=== PATIENT | male | born 1945 | race Caucasian/White ===

== ENCOUNTER 2018-10-04 07:31 | Day surgery (SDC) | payer MEDICARE, OTHER, SELFPAY ==
[2018-09-19 07:34] VITALS: BMI 30.4
[2018-10-04] VITALS (8 sets, daily range): BP systolic 99–131; BP diastolic 67–83; PULSE 62–68; RESP 10–21; TEMP 36.2–37.2; O2SAT 94–99; BMI 30.2
[2018-10-04] MEDS: ACETAMINOPHEN 325 MG TABLET 975 MG PO (08:01)
[2018-10-04] MEDS: CELECOXIB 200 MG CAPSULE PO (08:01)
[2018-10-04] MEDS: LACTATED RINGERS 1,000 ML 42 ML IV (08:15)
--- NOTE | 2018-10-04 08:29 | PM.OP.1 ---
Operative Date/Time/Diagnoses Date of procedure: 10/04/18 Time of procedure: 09:47 Pre-op diagnosis: Medial compartment osteoarthritis right knee Post-op diagnosis: same Procedure & Clinicians Procedure: Right knee medial compartment arthroplasty Same procedure as scheduled: Yes Indications: The patient presents today for medial compartment knee arthroplasty after failure of conservative treatment. The nature of the procedure including the risks and benefits, alternatives, postoperative course and expected outcome were discussed and all questions answered. Consent was obtained. Operative site confirmed and marked. Surgeon: Richard Naylor Assistant Women'S Basketball Coach: Subha Shah Anesthesia Type: General and Local Operative Notes Findings: Severe medial compartment osteoarthritis. Closure Type: primary Specimen(s): none sent Prosthetic devices, grafts, tissues, transplants, or devices: ZUK D femur, 3 tibia and 9 mm polyethylene tray. Applied: implant(s) Estimated Blood Loss (mL): 15 Blood products transfused: none Tourniquet time (min): 37 Procedure in detail: The patient was taken to the operative suite and placed under general anesthesia. The patient received prophylactic antibiotics 1 g of IV tranexamic acid prior to surgery. The lateral aspect of the leg was prepped and the knee injected with 20 mL of 1% lidocaine with epinephrine. The leg was prepped and draped in usual sterile fashion. The leg was exsanguinated with an Esmarch dressing and the tourniquet raised to 250 torr. A 10 cm medial parapatellar incision and arthrotomy was then made. The anterior aspect of the fat pad and medial meniscus was resected. A small amount of anterior tibial boss was resected with a oscillating saw. The knee was then extended and the alignment guide placed. The distal femoral and proximal tibial cutting guides were then pinned into place. The distal femoral cut was made in extension. The proximal tibial cut was made in flexion. All remaining meniscus was excised. Gaps were checked with blocks. Soft tissues were then injected with a combination of 40 mL of quarter percent Marcaine with epinephrine, 20 mL of Exparel. The femur was sized and the appropriate cutting guide placed. The peg holes were drilled and chamfer cuts made. Next the tibia was sized and drilled. Trial components were then placed. The knee had good temple of soft tissue tension without over correction. Range of motion was full. The trial components were removed. The knee was cleansed with Pulsavac irrigation and dried. The components were then cemented with high viscosity vacuum mixed bone cement. The knee was held in extension until the cement had adequately cured. The knee was then irrigated and inspected for any further debris. The extensor mechanism was closed at 90? of flexion with a few interrupted #1 Vicryl sutures and a running O V-LOC suture. The knee was then filled with 50 mL of solution containing 1 g of tranexamic acid and 10 mL of 0.5% Marcaine. The subcutaneous tissue was closed with 2-0 Vicryl. The skin was closed with a running 3 0 V-LOC suture and surgical adhesive. An Aquacel dressing was applied. The leg was then wrapped with an Hussein which will be kept on for the first 24 hours. The patient tolerated the procedure well and was returned to recovery room in good condition. Complications: none Condition: stable Disposition: same day surgery Plan for aftercare: Plan discharge to home. Physical therapy to start within 1 week. Clinic follow-up in 2 weeks.
--- NOTE | 2018-10-04 08:31 | PM.PREOP ---
Pre-operative Note Interval Note History & Physical reviewed/Exam performed by Physician: Yes Changes to H&P: No
[2018-10-04] MEDS: CEFAZOLIN 2 GM/100 ML FROZ.PIGGY IV (08:55)
--- NOTE | 2018-10-04 09:12 | SUR.OPER ---
Supine on padded OR bed. Pillow under head, arms secured on padded armboards <90 degree abduction. Safety belt across torso. Non-operative leg secured with tape over blanket over lower leg. Operative leg secured in [employer]/Mikey positioner. Foam padded brace at thigh of operative leg.
[2018-10-04] MEDS: LIDOCAINE 1% W/EPI INJ 20 ML INJ (09:20)
[2018-10-04] MEDS: BUPIVACAINE 0.5% W/ EPI (PF) 20 ML, BUPIVACAINE LIPOSOME 266 MG, SODIUM CHLORIDE 0.9% 2... INJ (09:21)
[2018-10-04] MEDS: BUPIVACAINE 0.5% W/ EPI (PF) 10 ML, TRANEXAMIC ACID 1,000 MG, SODIUM CHLORIDE 0.9% 20 ML INJ (09:26)
[2018-10-04] MEDS: HYDROCODONE/ACET 5/325 TABLET 1 TAB PO (10:20)
--- NOTE | 2018-10-04 10:37 | SUR.PHASEII ---
pt arrived to phase II via stretcher. Pt sitting up, alert and talking to RN. drsg to surgical extremity observed to be c/d/i. pt rates pain 5/10 at this time and reports this is tolerable at this time. pt denies any nausea and tolerating oral intake at this time. pt awaiting return of girlfriend from getting rx filled. bed in lowest position and call light given to pt. pt appears comfortable at this time.
--- NOTE | 2018-10-04 11:33 | SUR.PHASEII ---
pt ambulated to bathroom with sba without any difficultly observed, steady gait. My reported I feel better than I did before surgery. pt discharged to home in stable condition, vss.
== END 2018-10-04 11:39 | disposition home or self-care (01) ==
PROVIDERS: PCP Nurse Practitioner Family; Visit Provider Orthopaedic Surgery
PROC: (CPT 27446; principal; 2018-10-04 08:45)
DX: M17.11 Unilateral primary osteoarthritis, right knee (principal); G20 Parkinson's disease; I10 Essential (primary) hypertension; I50.9 Heart failure, unspecified; F17.210 Nicotine dependence, cigarettes, uncomplicated
CPT/HCPCS: 27446; C1776; C9290; J0690; J1100; J2405; J2704; J3010